=== PATIENT | female | born 1995 | race Caucasian/White ===

== ENCOUNTER 2020-01-29 22:25 | Emergency (ER) | payer SELFPAY ==
[2020-01-29] MEDS ORDERED: Reglan 10 MG/2 ML IM ONE (22:50)
[2020-01-29] MEDS ORDERED: TORAdol 30 mg Injection IM ONE (22:51)
[2020-01-29] MEDS ORDERED: BENADRYL 50 MG/ML IM ONE (22:51)
[2020-01-29] MEDS ORDERED: BENADRYL 50 MG/ML ONE (22:56)
[2020-01-29] MEDS ORDERED: TORAdol 30 mg Injection ONE (22:56)
[2020-01-29] MEDS ORDERED: Reglan 10 MG/2 ML ONE (22:56)
--- NOTE | 2020-01-29 22:57 | ERPHSYRPT ---
- History of Present Illness Time Seen by Provider: 01/29/20 22:41 Source: patient Exam Limitations: no limitations Patient Subjective Stated Complaint: pt states that she woke up with a migraine , pt states that she has hx of migraines, pt states that she has taken tylenol and ibuprofen with no relief Triage Nursing Assessment: pt ambulated into the er, pt is axo x4, pt is holding head, pt states 8/10 pain to head, pt has hx of migraines, pupils are 3 mm and PERRL, pt has strong pulses, clear lung sounds in all lobes, clear heart tones Physician History: 24 years old female with history of migraines not taking any medication regularly, presented in the ER with chief complaint of right-sided headache sudden onset when she woke up this morning, moderate intensity, aggravated with light and loud noise and has taken ibuprofen with no significant relief. Associated with nausea and one episode of nonprojectile, nonbilious vomiting. She denies any numbness tingling or weakness. No visual symptoms otherwise. Headache is similar to previous episodes. Timing/Duration: today, sudden, worse Quality: sharpness, throbbing Head Pain Location: frontal, temporal, parietal Severity of Pain-Max: moderate Severity of Pain-Current: moderate Recent Head Trauma: no recent headache/trauma, frequent headaches Modifying Factors: Improves With: exposure to light, noise Associated Symptoms: nausea/vomiting, No confusion, No light-headedness, No numbness in legs/feet, No stiff neck Previous symptoms: same symptoms as today Allergies/Adverse Reactions: No Known Drug Allergies Allergy (Unverified 01/29/20 22:33) Home Medications: No Reportable Medications [No Reported Medications] 01/29/20 [History] Hx Tetanus, Diphtheria Vaccination/Date Given: Yes Hx Influenza Vaccination/Date Given: Yes Hx Pneumococcal Vaccination/Date Given: No Immunizations Up to Date: Yes Travel Risk - International Travel Have you traveled outside of the country in past 3 weeks: No Have you or anyone close to you been diagnosed with or: No Do your reside in a community with a known COVID-19 case?: Yes If Yes where:: [place] - Coronavirus Screening Has patient experienced Coronavirus symptoms: No - Review of Systems Constitutional: No Symptoms Eyes: No Symptoms Ears, Nose, & Throat: No Symptoms Respiratory: No Symptoms Cardiac: No Symptoms Abdominal/Gastrointestinal: No Symptoms Genitourinary Symptoms: No Symptoms Musculoskeletal: No Symptoms Skin: No Symptoms Neurological: Headache Psychological: No Symptoms Endocrine: No Symptoms Hematologic/Lymphatic: No Symptoms Immunological/Allergic: No Symptoms - Past Medical History Neurological History: Migraines Cardiac History: Hypertension Musculoskeletal History: Fibromyalgia - Past Surgical History Past Surgical History: Yes Female Surgical History: Dilation & Curettage Other Surgical History: surgery on left index finger - Social History Smoking Status: Former smoker Drug Use: none - Female History Hx Now: No - Nursing Vital Signs Nursing Vital Signs: Initial Vital Signs Temperature 98.2 F 01/29/20 22:34 Pulse Rate 79 01/29/20 22:34 Respiratory Rate 16 01/29/20 22:34 Blood Pressure 143/96 01/29/20 22:34 O2 Sat by Pulse Oximetry 100 01/29/20 22:34 Pain Scale Pain Intensity 8 - Physical Exam General Appearance: no apparent distress, alert Eye Exam: PERRL/EOMI, eyes nml inspection Ears, Nose, Throat Exam: normal ENT inspection, TMs normal, pharynx normal Neck Exam: normal inspection, non-tender, supple, full range of motion Respiratory Exam: normal breath sounds, lungs clear Cardiovascular Exam: regular rate/rhythm, normal heart sounds Gastrointestinal/Abdominal Exam: soft, No tenderness Extremity Exam: normal inspection Mental Status Exam: alert, oriented x 3, 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 Exam: normal hearing, normal speech, PERRL Coordination/Gait Exam: normal finger to nose, normal gait, normal cerebellar function, negative Romberg's sign Motor/Sensory Exam: no motor deficit, no sensory deficit, no pronator drift, negative Babinski's sign DTR Exam: bicep (R): 2+, bicep (L): 2+, knee (R): 2+, knee (L): 2+ Skin Exam: normal color, warm SpO2 Interpretation: normal SpO2: 100 O2 Delivery: Room Air - Course Nursing assessment & vital signs reviewed: Yes Ordered Tests: Active Orders 24 hr Category Date Time Status Isolation, Initiate & Maintain Q4H Care 01/29/20 22:42 Active Medication Summary Discontinued Medications Generic Name Dose Route Start Last Admin Trade Name Freq PRN Reason Stop Dose Admin Diphenhydramine HCl 50 mg 01/29/20 22:51 01/29/20 23:08 Benadryl 50 Mg/Ml IM 05/25/20 22:52 50 mg STAT ONE Administration Diphenhydramine HCl Confirm 01/29/20 22:56 Benadryl 50 Mg/Ml Administered 01/29/20 22:57 Dose 50 mg .ROUTE .STK-MED ONE Ketorolac Tromethamine 30 mg 01/29/20 22:51 01/29/20 23:00 Toradol 30 Mg Injection IM 01/29/20 22:52 30 mg STAT ONE Administration Ketorolac Tromethamine Confirm 01/29/20 22:56 Toradol 30 Mg Injection Administered 01/29/20 22:57 Dose 30 mg .ROUTE .STK-MED ONE Metoclopramide HCl 10 mg 01/29/20 22:50 01/29/20 23:08 Reglan 10 Mg/2 Ml IM 01/29/20 22:51 10 mg STAT ONE Administration Metoclopramide HCl Confirm 01/29/20 22:56 Reglan 10 Mg/2 Ml Administered 01/29/20 22:57 Dose 10 mg .ROUTE .STK-MED ONE - Progress Progress: improved, re-examined Air Movement: good Progress Note: 01/29/20 24 years old is evaluated for migraine headache. She has a nonfocal neuro exam. Headache is similar to previous episodes. No signs of meningismus. Nofocal neuro deficit. She is given migraine cocktail with Toradol/Benadryl/Reglan, on reevaluation feeling better. Recommended outpatient follow-up with primary care and neurology to be placed on prophylactic medication. Discussed signs symptoms of worsening needing return to ER which she seemed understanding. Stable for discharge. Blood Culture(s) Obtained: No Antibiotics given: No Counseled pt/family regarding: diagnosis, need for follow-up - Departure Departure Disposition: Home Clinical Impression: Migraine Qualifiers: Migraine type: without aura Status migrainosus presence: without status migrainosus Intractability: not intractable Qualified Code(s): G43.009 - Migraine without aura, not intractable, without status migrainosus Condition: Stable Critical Care Time: No Referrals: FIDELIA FRENCH DO [ACTIVE STAFF] - (1-2 days for re evaluation ) TR REYNOSO [NON-STAFF PHY W/O PRIVILEGES] - (1-2 days for re evaluation ) Instructions: Headache, Adult (DC) Additional Instructions: ,/Ibuprofen as needed. Follow-up with primary care and neurology for reevaluation and to be placed on prophylactic medications. Return to ER for intractable headache, numbness tingling weakness, visual symptoms etc.
[2020-01-29 23:32] VITALS: BP 118/87; PULSE 68; O2SAT 98
== END 2020-01-29 23:33 | disposition home or self-care (01) ==
LOC: ED 22:25
DX: G43.009 Migraine without aura, not intractable, without status migrainosus (principal); I10 Essential (primary) hypertension; M79.7 Fibromyalgia; Z72.0 Tobacco use
CPT/HCPCS: 96372; 99284; J1200; J1885